=== PATIENT | male | born 1940 | race Caucasian/White ===

== ENCOUNTER 2021-01-22 12:37 | Inpatient (IN) ==
[2021-01-22 13:24] LABS: Basophils % 0.2 %; Eosinophils # 0.2 K/mcL (0.0-0.6); Eosinophils % 2.9 %; Hematocrit 38.5 % (37.5-50.1); Hemoglobin 13.1 g/dL (12.9-16.9); Immature Granulocytes % 0.5 % (0-4); Lymphocytes # 1.4 K/mcL (0.6-4.6); Lymphocytes % 23.2 %; Mean Corpuscular Hemoglobin 30.5 pg (28.0-33.3); Mean Corpuscular Volume 89.7 fL (83.0-100.0); Mean Platelet Volume 9.2 fL (9.4-12.4); Monocytes # 0.5 K/mcL (0.0-1.3); Monocytes % 8.6 %; Neutrophils # 3.9 K/mcL (1.6-8.9); Platelet Count 214 K/mcL (140-400); Red Blood Count 4.29 M/mcL (4.19-5.50); Red Cell Distribution Width 13.2 % (11.5-14.5); Segmented Neutrophils % 64.6 %
[2021-01-22 13:34] LABS: INR 1.2; Prothrombin Time 13.2 Seconds (9.4-12.1)
[2021-01-22 13:37] LABS: Activated Partial Thrombo Time 36.2 Seconds (26.0-36.0)
[2021-01-22 13:51] LABS: Albumin 3.8 g/dL (3.5-5.7); Albumin/Globulin Ratio 1.2 (1.1-2.2); Bilirubin,Direct 0.2 mg/dL (0.0-0.2); Bilirubin,Indirect 0.1 mg/dL (0.0-1.0); Bilirubin,Total 0.3 mg/dL (0.3-1.0); Calcium 8.3 mg/dL (8.6-10.3); Globulin 3.1 g/dL (2.4-3.5); Potassium 3.9 mEq/L (3.5-5.1); Total Protein 6.9 g/dL (6.4-8.9); Troponin I 0.04 ng/mL (< 0.04)
[2021-01-22 16:34] LABS: Troponin I 0.04 ng/mL (< 0.04)
[2021-01-22] MEDS ORDERED: Naloxone 0.4 MG/ML INJ IVP PRN (18:09)
[2021-01-22] MEDS ORDERED: *HR* Dextrose 50 % in Water (Syg) 50 ML SYRINGE IVP PRN (20:08)
[2021-01-22] MEDS ORDERED: Dextrose Gel 15 GM/37.5 ML TUBE PO PRN ×2 (20:08)
[2021-01-22] MEDS ORDERED: D5% in Water 1,000 ML IVC PRN (20:08)
[2021-01-22] MEDS ORDERED: Benzonatate 100 MG CAPSULE PO PRN (20:10)
[2021-01-22 20:46] LABS: Hepatitis B Surface Antigen Nonreactive (Nonreactive)
[2021-01-22] MEDS ORDERED: Primidone 50 MG TABLET PO SCH (21:00)
[2021-01-22] MEDS ORDERED: Insulin LISPRO 300 UNITS/3 ML VIAL SUBQ SCH (21:00)
[2021-01-22] MEDS ORDERED: Remdesivir 200 MG in 0.9 % Sodium Chloride 100 ML IVPB ONE (21:00)
[2021-01-22 21:15] LABS: Hepatitis C Virus Antibody Nonreactive (Nonreactive)
[2021-01-22 21:16] LABS: Hepatitis A Antibody IgM Nonreactive (Nonreactive); Hepatitis B Core IgM Nonreactive (Nonreactive)
[2021-01-22] MEDS: Ipratropium 1 PUFF INHALER IH SCH (23:49)
[2021-01-23] MEDS ORDERED: Albuterol 2.5 MG/3 ML NEBULIZER IH SCH
[2021-01-23 00:22] VITALS: RESP 18
[2021-01-23] MEDS: Ipratropium 1 PUFF INHALER IH SCH (04:13)
[2021-01-23 04:25] VITALS: BP 115/65; PULSE 76; TEMP 97.9; O2SAT 94
[2021-01-23] MEDS ORDERED: *HR* Enoxaparin 40 MG/0.4 ML SYRINGE SQ SCH (06:00)
[2021-01-23 06:12] LABS: Hematocrit 36.2 % (37.5-50.1); Hemoglobin 12.2 g/dL (12.9-16.9); Immature Granulocytes % 0.4 % (0-4); Lymphocytes # 0.7 K/mcL (0.6-4.6); Lymphocytes % 12.3 %; Mean Corpuscular HGB Conc 33.7 g/dL (31.6-35.5); Mean Corpuscular Volume 89.2 fL (83.0-100.0); Mean Platelet Volume 9.1 fL (9.4-12.4); Monocytes # 0.3 K/mcL (0.0-1.3); Monocytes % 5.9 %; Neutrophils # 4.6 K/mcL (1.6-8.9); Platelet Count 203 K/mcL (140-400); Red Blood Count 4.06 M/mcL (4.19-5.50); Segmented Neutrophils % 81.4 %; White Blood Count 5.6 K/mcL (4.3-11.1)
[2021-01-23 06:37] LABS: BUN/Creatinine Ratio 28 (6-26); Blood Urea Nitrogen 29 mg/dL (8-23); Calcium 8.1 mg/dL (8.6-10.3); Carbon Dioxide 22 mEq/L (23-29); Chloride 97 mEq/L (98-107); Glucose 181 mg/dL (70-105); Osmolality,Calculated 276 (280-300); Potassium 4.4 mEq/L (3.5-5.1); Sodium 128 mEq/L (136-145); eGFR For African Americans > 60 (> 60); eGFR For Non-African Americans > 60 (> 60)
[2021-01-23 06:38] LABS: Albumin 3.5 g/dL (3.5-5.7); Albumin/Globulin Ratio 1.3 (1.1-2.2); Bilirubin,Direct 0.2 mg/dL (0.0-0.2); Bilirubin,Indirect 0.1 mg/dL (0.0-1.0); Bilirubin,Total 0.3 mg/dL (0.3-1.0); Globulin 2.7 g/dL (2.4-3.5); Total Protein 6.2 g/dL (6.4-8.9)
[2021-01-23] MEDS ORDERED: Insulin LISPRO 300 UNITS/3 ML VIAL SUBQ SCH (07:30)
[2021-01-23] MEDS ORDERED: GlipiZIDE 5 MG TABLET PO SCH (08:00)
[2021-01-23] MEDS ORDERED: Aspirin 81 MG TAB.CHEW PO SCH (09:00)
[2021-01-23] MEDS ORDERED: hydroCHLOROthiazide 25 MG TABLET PO SCH (09:00)
[2021-01-23] MEDS ORDERED: Multivit/Ca/Min/Fe/FA 1 TAB TABLET PO SCH (09:00)
[2021-01-23] MEDS ORDERED: Remdesivir 100 MG in 0.9 % Sodium Chloride 100 ML IVPB SCH (21:00)
== END 2021-01-23 06:10 | disposition other institution (70) | DRG 177 ==
LOC: EMEROOGRE 12:37 → INPGRE 18:04
PROVIDERS: ADMIT Family Medicine; ATTEND Family Medicine